=== PATIENT | female | born 2000 | race Caucasian/White ===

== ENCOUNTER 2022-12-25 15:05 | Emergency (ER) | payer MEDICAID ==
[2022-12-25] MEDS ORDERED: Sodium Chloride 0.9% 10 ML Syringe FLUSH PRN (15:47)
[2022-12-25 16:25] LABS: HEMATOCRIT 40.1 % (34.3-46.0); HEMOGLOBIN 13.4 g/dL (11.2-15.5); MEAN CORPUSCULAR HEMOGLOBIN 29.1 pg (31.6-35.5); MEAN CORPUSCULAR HGB CONC 33.4 g/dL (31.6-35.5); RED BLOOD CELL COUNT 4.61 M/uL (3.77-5.24); WHITE BLOOD CELL COUNT,WBC 15.9 K/uL (3.2-11.0)
[2022-12-25 16:29] LABS: APPEARANCE,URINE CLOUDY (CLEAR); BILIRUBIN,URINE SMALL (NEGATIVE); COLOR,URINE YELLOW (YELLOW); GLUCOSE,URINE NEGATIVE (NEGATIVE); KETONES,URINE 15 mg/dL (NEGATIVE); LEUKOCYTE ESTERASE,URINE NEGATIVE (NEGATIVE); NITRITE,URINE NEGATIVE (NEGATIVE); OCCULT BLOOD,URINE LARGE (NEGATIVE); PH,URINE 5.5 (5.0-8.0); PROTEIN,URINE 30 mg/dL (NEGATIVE)
[2022-12-25 16:34] LABS: AMORPHOUS SEDIMENT,URINE FEW; BACTERIA,URINE MANY; EPITHELIAL CELLS,URINE MANY; MUCUS,URINE FEW
[2022-12-25] MEDS ORDERED: Sodium Chloride 0.9% 500 ML IV ONE (16:37)
[2022-12-25 16:57] LABS: BLOOD UREA NITROGEN,BUN 7 mg/dL (7-18); CARBON DIOXIDE,CO2 26 mmol/L (21-32); CHLORIDE,CL 103 mmol/L (100-108); CREATININE 0.8 mg/dL (0.6-1.0); EST CRCL DRUG DOSING (CG) 95.25 mL/min; ESTIMATED GFR 107 mL/min (>60); GLUCOSE RANDOM 120 mg/dL (74-106); MAGNESIUM 1.8 mg/dL (1.8-2.4); POTASSIUM,K 3.5 mmol/L (3.6-5.2); SODIUM,NA 139 mmol/L (140-148); TSH ULTRASENSITIVE 1.796 uIU/mL (0.358-3.740)
[2022-12-25 16:58] LABS: ANION GAP 13.5 mmol/L (5.0-14.0); TROPONIN I HIGH SENSITIVITY < 4.0 pg/mL (<=60.3)
[2022-12-25] MEDS ORDERED: Potassium Chloride 20 MEQ Tab.ER PO ONE (17:04)
== END 2022-12-25 18:03 | disposition home or self-care (01) ==
LOC: JP.ED 15:05
DX: R55 Syncope and collapse (principal)
CPT/HCPCS: 36415; 80048; 81001; 81025; 83735; 84443; 84484; 85027; 96360; 99285; A9270; J7040